=== PATIENT | male | born 1970 | race Two or more races ===

== ENCOUNTER 2018-08-27 18:38 | Inpatient (IN) | payer MEDICAID ==
[~2018-08-27] VITALS: Ht 180.3 cm; Wt 126.4 kg
[2018-08-27 19:47] LABS: Hematocrit 50.4 % (41.0-53.0); Hemoglobin 16.9 g/dL (13.5-17.5); Mean Corpuscular Hemoglobin 29.2 pg (28.0-32.0); Mean Corpuscular Hgb Conc. 33.5 g/dL (32.0-36.0); Mean Corpuscular Volume 87.1 fL (80.0-100.0); Platelet Count (auto) 301 10^3/uL (140-450); Red Blood Cells 5.79 10^6/uL (4.5-5.90); Red Cell Distribution Width 13.7 % (11.8-14.3); White Blood Cell 10.6 10^3/uL (4.4-10.8)
[2018-08-27 20:04] LABS: Albumin 3.7 g/dL (3.4-5.0); BUN/Creatinine Ratio 17.5; Calcium 8.1 mg/dL (8.5-10.1); Potassium 3.6 mmol/L (3.5-5.1)
[2018-08-27 20:05] LABS: Band Neutrophils % (manual) 0; Basophils % (manual) 0 (0.0-2.0); Blast Cells 0; Myelocytes % 0; Promyelocytes % 0; Reactive Lymphocytes 0
[2018-08-27 20:09] LABS: Bilirubin, Total 0.6 mg/dL (0.2-1.0); Total Protein 7.4 g/dL (6.4-8.2)
[2018-08-27 20:34] LABS: Eosinophils % (manual) 5 (0-7); Lymphocytes % (manual) 32 (10.0-50.0); Metamyelocytes % 1; Monocytes % (manual) 3 (0-12)
[2018-08-27] MEDS ORDERED: MORPHINE SULFATE 4 MG/ML SYR/VIAL IV ONE (21:00)
[2018-08-27] MEDS ORDERED: ASPirin-EC 81 mg tab PO ONE (21:00)
[2018-08-27] MEDS ORDERED: ONDANSETRON HCL 4 MG/2 ML VIAL IV ONE (21:00)
[2018-08-27] MEDS ORDERED: SODIUM CHLORIDE 0.9% 1,000 ML IV SCH (21:17)
[2018-08-27 21:20] LABS: INR 0.94 (0.9-1.15); Prothrombin Time 10.1 sec (9.27-12.13)
[2018-08-27] MEDS ORDERED: ENOXAPARIN SOD 100 MG/1 ML SYRINGE SC ONE ×2 (21:30→23:15)
[2018-08-27] MEDS ORDERED: ONDANSETRON HCL 4 MG/2 ML VIAL IV PRN (21:30)
[2018-08-27] MEDS ORDERED: TEMAZEPAM 15 MG CAP PO PRN (21:30)
[2018-08-27] MEDS ORDERED: HYDROcodone-ACET 5/325MG TAB PO PRN (21:30)
[2018-08-27] MEDS ORDERED: ACETAMINOPHEN 325 MG TAB PO PRN (21:30)
[2018-08-27] MEDS ORDERED: MORPHINE SULFATE 4 MG/ML SYR/VIAL IV PRN (21:30)
[2018-08-27] MEDS ORDERED: ATORVASTATIN 20 MG TAB PO SCH ×2 (22:00→23:45)
[2018-08-27 22:16] VITALS: BP 147/96
[2018-08-27] MEDS ORDERED: ENOXAPARIN SOD 120 MG/0.8 ML SYRINGE SC ONE (23:08)
[2018-08-27] MEDS: NITROGLYCERIN 0.4 MG SL TAB SL PRN (23:50)
[2018-08-28] VITALS (11 sets, daily range): BP systolic 124–161; BP diastolic 74–116
[2018-08-28] MEDS ORDERED: METOPROLOL TARTRATE 25 MG TAB PO ONE
[2018-08-28] MEDS: FAMOTIDINE 20 MG TAB PO SCH ×3 (00:12→21:38)
[2018-08-28 00:27] LABS: Urine WBC None Seen /hpf (0 - 3)
[2018-08-28 00:47] LABS: Urine Bacteria NONE SEEN /hpf (None Seen); Urine Blood Negative /uL (Negative); Urine Specific Gravity 1.016 (1.001-1.035)
[2018-08-28] MEDS: NITROGLYCERIN 0.4 MG SL TAB SL PRN ×2 (02:56→03:28)
[2018-08-28] MEDS ORDERED: NITROGLYCERIN 50MG/250ML 250 ML IV SCH (05:45)
[2018-08-28 06:08] LABS: Basophils # (auto) 0 uL; Basophils % (auto) 0.3 % (0.0-2.0); Eosinophils # (auto) 0.3 uL; Hematocrit 46.1 % (41.0-53.0); Hemoglobin 15.7 g/dL (13.5-17.5); Lymphocytes # (auto) 2.3 uL; Lymphocytes % (auto) 18.2 % (10.0-50.0); Mean Corpuscular Hemoglobin 28.9 pg (28.0-32.0); Mean Corpuscular Hgb Conc. 34.1 g/dL (32.0-36.0); Mean Corpuscular Volume 84.8 fL (80.0-100.0); Monocytes % (auto) 7.8 % (0.0-12.0); Neutrophils # (auto) 8.9 uL; Neutrophils % (auto) 71.7 % (37.0-80.0); Nucleated Red Blood Cells % 0.2 %; Platelet Count (auto) 273 10^3/uL (140-450); Red Blood Cells 5.44 10^6/uL (4.5-5.90); Red Cell Distribution Width 13.4 % (11.8-14.3); White Blood Cell 12.5 10^3/uL (4.4-10.8)
[2018-08-28 06:21] LABS: Albumin 3.5 g/dL (3.4-5.0); BUN/Creatinine Ratio 21.7; Calcium 7.6 mg/dL (8.5-10.1); Potassium 3.8 mmol/L (3.5-5.1)
[2018-08-28 06:24] LABS: Bilirubin, Total 0.6 mg/dL (0.2-1.0); Total Protein 6.9 g/dL (6.4-8.2)
[2018-08-28] MEDS ORDERED: IOHEXOL 350 MG/ML 100ML IJ ONE ×3 (08:17→08:51)
[2018-08-28] MEDS ORDERED: LIDOCAINE 2%HCL (LOCAL ANESTH.) INJ 20ML MDV ONE (08:17)
[2018-08-28] MEDS ORDERED: SODIUM CHL 0.9% 50 ML ONE (08:18)
[2018-08-28] MEDS ORDERED: ANGIOMAX 250 MG VIAL IV ONE (08:18)
[2018-08-28] MEDS ORDERED: MIDAZOLAM HCL 1MG/1ML-2 ML VIAL ONE (08:18)
[2018-08-28] MEDS ORDERED: fentaNYL CITRATE 100 MCG/2 ML VL ONE (08:18)
[2018-08-28] MEDS ORDERED: EPINEPHrine HCL 1 MG/10 ML SYRG ONE (08:24)
[2018-08-28] MEDS ORDERED: ATROPINE SULF 1 MG/10ml SYR ONE (08:24)
[2018-08-28] MEDS ORDERED: METOPROLOL TARTRATE 1MG/1ML-5ML VIAL IV ONE (08:58)
[2018-08-28] MEDS ORDERED: ASPirin 325 MG TAB ONE (09:00)
[2018-08-28] MEDS ORDERED: CLOPIDOGREL 300 MG TAB ONE (09:00)
[2018-08-28] MEDS ORDERED: ONDANSETRON HCL 4 MG/2 ML VIAL IV PRN (09:45)
[2018-08-28] MEDS ORDERED: ZOLPIDEM TARTRATE 5 MG TAB PO PRN (09:45)
[2018-08-28] MEDS ORDERED: ACETAMINOPHEN 500 MG TAB PO PRN (09:45)
[2018-08-28] MEDS ORDERED: HYDROcodone-ACET 5/325MG TAB PO PRN (09:45)
[2018-08-28] MEDS ORDERED: CLOPIDOGREL BISULFATE 75 MG TAB PO ONE (10:00)
[2018-08-28] MEDS ORDERED: ENOXAPARIN SOD 120 MG/0.8 ML SYRINGE SC SCH (10:00)
[2018-08-28] MEDS ORDERED: ASPirin 81 mg TAB PO SCH (10:00)
[2018-08-28] MEDS ORDERED: METOPROLOL TARTRATE 25 MG TAB PO SCH (10:00)
[2018-08-28] MEDS: LISINOPRIL 5 MG TAB PO SCH ×2 (10:00→21:38)
[2018-08-28] MEDS: METOPROLOL TARTRATE 50 MG TAB PO SCH (10:30)
[2018-08-28] MEDS ORDERED: ATORVASTATIN 20 MG TAB PO SCH (22:00)
[2018-08-29 04:47] VITALS: BP 102/63
[2018-08-29 06:57] LABS: Hematocrit 47.2 % (41.0-53.0); Hemoglobin 16.1 g/dL (13.5-17.5); Mean Corpuscular Hemoglobin 29.4 pg (28.0-32.0); Mean Corpuscular Hgb Conc. 34.2 g/dL (32.0-36.0); Platelet Count (auto) 266 10^3/uL (140-450); Red Blood Cells 5.49 10^6/uL (4.5-5.90); Red Cell Distribution Width 13.4 % (11.8-14.3); White Blood Cell 9.3 10^3/uL (4.4-10.8)
[2018-08-29 07:04] LABS: Potassium 4.1 mmol/L (3.5-5.1)
[2018-08-29 07:08] LABS: Band Neutrophils % (manual) 0; Basophils % (manual) 0 (0.0-2.0); Blast Cells 0; Eosinophils % (manual) 0 (0-7); Metamyelocytes % 0; Myelocytes % 0; Promyelocytes % 0; Reactive Lymphocytes 0
[2018-08-29 07:20] LABS: BUN/Creatinine Ratio 15.7; Calcium 8.3 mg/dL (8.5-10.1); Magnesium 2.4 mg/dL (1.6-2.6)
[2018-08-29 08:56] LABS: Lymphocytes % (manual) 23 (10.0-50.0); Monocytes % (manual) 10 (0-12)
[2018-08-29 09:00] VITALS: BP 107/70
[2018-08-29] MEDS: FAMOTIDINE 20 MG TAB PO SCH (09:27)
[2018-08-29] MEDS: METOPROLOL TARTRATE 50 MG TAB PO SCH (09:27)
[2018-08-29] MEDS: LISINOPRIL 5 MG TAB PO SCH (09:27)
[2018-08-29] MEDS ORDERED: CLOPIDOGREL BISULFATE 75 MG TAB PO SCH (10:00)
[2018-08-29] MEDS ORDERED: ASPirin-EC 81 mg tab PO SCH (10:00)
[2018-08-29 13:00] VITALS: BP 112/68
[2018-08-29] MEDS ORDERED: ASP81EC PO (13:44)
[2018-08-29] MEDS ORDERED: LISI-275 PO (13:44)
[2018-08-29] MEDS ORDERED: CLOP75TA28 PO (13:44)
[2018-08-29] MEDS ORDERED: MET25T PO (13:44)
[2018-08-29] MEDS ORDERED: PANT40TA2 PO (13:44)
[2018-08-29] MEDS ORDERED: METF-370 PO (13:44)
[2018-08-29 16:24] VITALS: BP 123/76
== END 2018-08-29 16:55 | disposition home or self-care (01) | DRG 174 ==
LOC: ER 18:45 → TELE 21:20 → TELE-WESTW 22:19 → ICU CENTRL 08-28 05:37 → TELE 08-28 05:53 → TELE-WESTW 08-28 10:27
PROVIDERS: ADMIT Nurse Practitioner; ATTEND Internal Medicine
PROC: 027035Z Dilation of Coronary Artery, One Artery with Two Drug-eluting Intraluminal Devices, Percutaneous Approach (ICD-10-PCS; principal; 2018-08-27)
PROC: 4A023N7 Measurement of Cardiac Sampling and Pressure, Left Heart, Percutaneous Approach (ICD-10-PCS; 2018-08-27)
PROC: B2111ZZ Fluoroscopy of Multiple Coronary Arteries using Low Osmolar Contrast (ICD-10-PCS; 2018-08-28)
PROC: B2151ZZ Fluoroscopy of Left Heart using Low Osmolar Contrast (ICD-10-PCS; 2018-08-28)
DX: I21.4 Non-ST elevation (NSTEMI) myocardial infarction (principal); E66.01 Morbid (severe) obesity due to excess calories; I10 Essential (primary) hypertension; E78.5 Hyperlipidemia, unspecified; Z68.38 Body mass index [BMI] 38.0-38.9, adult; E11.9 Type 2 diabetes mellitus without complications; I25.10 Atherosclerotic heart disease of native coronary artery without angina pectoris; Z82.49 Family history of ischemic heart disease and other diseases of the circulatory system; Z95.5 Presence of coronary angioplasty implant and graft; Z87.81 Personal history of (healed) traumatic fracture
CPT/HCPCS: 36415; 71045; 80048; 80053; 80061; 81001; 83036; 83735; 84443; 84484; 85007; 85025; 85027; 85610; 85730; 87081; 92928; 93005; 93306; 93458; 96361; 96374; 96375; A6257; G0378; J2250; J2405

== ENCOUNTER → 2019-06-24 | Outpatient (CLI) | payer MEDICAID ==
[~2019-06-24] VITALS: Ht 180.3 cm; Wt 129.3 kg
[~2019-06-24] MED LIST: ASP81EC PO; CLOP75TA28 PO; LISI-275 PO; MET25T PO; METF-370 PO; PANT40TA2 PO
== END | disposition home or self-care (01) ==
LOC: Rad HDHVI 08:47
PROVIDERS: ATTEND Internal Medicine
DX: I10 Essential (primary) hypertension (principal); I25.10 Atherosclerotic heart disease of native coronary artery without angina pectoris; E78.5 Hyperlipidemia, unspecified; R63.8 Other symptoms and signs concerning food and fluid intake
CPT/HCPCS: 78452; 93017; 93306; 96374; A9500

== ENCOUNTER 2023-02-20 17:49 | Inpatient (IN) | payer MEDICAID ==
[~2023-02-20] VITALS: Ht 180.3 cm; Wt 130.6 kg
[~2023-02-20 17:49] MED LIST changes: -ASP81EC PO; +ASPI-394 PO
[2023-02-20 18:36] LABS: Hematocrit 50.3 % (41.0-53.0); Mean Corpuscular Hgb Conc. 33.7 g/dL (32.0-36.0); Red Blood Cells 5.85 10^6/uL (4.5-5.90); Red Cell Distribution Width 13.6 % (11.8-14.3); White Blood Cell 7.2 10^3/uL (4.4-10.8)
[2023-02-20 18:38] LABS: Calcium 9.5 mg/dL (8.5-10.1); Potassium 5.2 mmol/L (3.5-5.1)
[2023-02-20 18:42] LABS: BUN/Creatinine Ratio 12.7 (10.0-20.0); Band Neutrophils % (manual) 0; Basophils % (manual) 0 (0.0-2.0); Bilirubin, Total 0.6 mg/dL (0.2-1.0); Blast Cells 0; Metamyelocytes % 0; Myelocytes % 0; Promyelocytes % 0; Reactive Lymphocytes 0; Total Protein 7.5 g/dL (6.4-8.2)
[2023-02-20] MEDS ORDERED: NITROGLYCERIN 0.4 MG SL TAB SL ONE (18:45)
[2023-02-20] MEDS ORDERED: ASPirin 81 mg TAB PO ONE (18:45)
[2023-02-20] MEDS ORDERED: MAALOX PLUS or MAALOX 30 ML PO ONE (18:45)
[2023-02-20 19:07] LABS: Eosinophils % (manual) 2 (0-7); Lymphocytes % (manual) 34 (10.0-50.0); Monocytes % (manual) 5 (0-12)
[2023-02-20 19:27] LABS: INR 0.98 (0.9-1.15); Partial Thromboplastin Time 28.5 sec (24.6-33.4)
[2023-02-20 19:31] LABS: Lactic Acid w/Reflex 5.3 mmol/L (0.4-2.0)
[2023-02-20 20:13] LABS: Urine WBC None Seen /hpf (0 - 3)
[2023-02-20 20:33] LABS: Urine Bacteria NONE SEEN /hpf (None Seen); Urine Blood Negative /uL (Negative); Urine Specific Gravity 1.023 (1.001-1.035)
[2023-02-20 20:51] LABS: Alcohol, Urine < 3.0 mg/dL (0-10); Amphetamine Screen, Urine NEGATIVE (NEGATIVE); Barbiturate Scree,Urine NEGATIVE (NEGATIVE); Benzodiazephine Screen, Urine NEGATIVE (NEGATIVE); Cannabinoid Screen, Urine NEGATIVE (NEGATIVE); Cocaine Screen, Urine NEGATIVE (NEGATIVE); Opiate Scree,Urine NEGATIVE (NEGATIVE); Phencyclidine Screen, Urine NEGATIVE (NEGATIVE)
[2023-02-20] MEDS ORDERED: DEXTROSE (50%) 50ML SYRG IV PRN (21:45)
[2023-02-20] MEDS ORDERED: ACETAMINOPHEN 325 MG TAB PO PRN (21:45)
[2023-02-20] MEDS ORDERED: hydrALAZINE HCL 20 MG/ML VL IV PRN (21:45)
[2023-02-20] MEDS ORDERED: DOCUSATE SOD 100 MG CAP PO PRN (21:45)
[2023-02-20] MEDS ORDERED: HYDROcodone-ACET 5/325MG TAB PO PRN (21:45)
[2023-02-20] MEDS ORDERED: ONDANSETRON HCL 4 MG/2 ML VIAL IV PRN (21:45)
[2023-02-20] MEDS ORDERED: ATORVASTATIN 20 MG TAB PO SCH (22:00)
[2023-02-20] MEDS: METOPROLOL TARTRATE 50 MG TAB PO SCH (22:23)
[2023-02-20] MEDS ORDERED: NITROGLYCERIN 0.4 MG SL TAB SL PRN (22:30)
[2023-02-20] MEDS ORDERED: MORPHINE SULFATE INJ 2 MG/ml SYRG IV PRN (22:30)
[2023-02-20] MEDS: FAMOTIDINE (10MG/ML) 2ML VL IV SCH (22:37)
[2023-02-20] MEDS: SODIUM CHLORIDE 0.9% 500 ML IV ONE (22:41)
[2023-02-20] MEDS: SODIUM CHLORIDE 0.9% 1,000 ML IV SCH (22:41)
[2023-02-20] MEDS ORDERED: IOHEXOL 350 MG/ML 100ML IJ ONE (22:54)
[2023-02-21] VITALS (7 sets, daily range): BP systolic 129–152; BP diastolic 81–94
[2023-02-21] MEDS: SODIUM CHLORIDE 0.9% 500 ML IV ONE (00:04)
[2023-02-21] MEDS: SODIUM CHLORIDE 0.9% 1,000 ML IV SCH ×2 (00:04→14:25)
[2023-02-21] MEDS: InsuLIN REG 1unit/0.01ml Soln (100units/ml) SC SCH ×5 (00:15→16:37)
[2023-02-21] MEDS: ACCU-CHEK COMFORT CURVE STRIP VI SCH ×5 (00:15→16:37)
[2023-02-21] MEDS ORDERED: SENNA 8.6 MG TAB PO ONE (01:45)
[2023-02-21] MEDS ORDERED: ATOR40TA52 PO (05:14)
[2023-02-21 06:33] LABS: Hematocrit 44.4 % (41.0-53.0); Hemoglobin 15.4 g/dL (13.5-17.5); Mean Corpuscular Hemoglobin 29.8 pg (28.0-32.0); Mean Corpuscular Hgb Conc. 34.8 g/dL (32.0-36.0); Mean Corpuscular Volume 85.6 fL (80.0-100.0); Red Blood Cells 5.18 10^6/uL (4.5-5.90); Red Cell Distribution Width 13.6 % (11.8-14.3)
[2023-02-21 06:45] LABS: Albumin 3.3 g/dL (3.4-5.0); Calcium 7.9 mg/dL (8.5-10.1); Potassium 3.7 mmol/L (3.5-5.1)
[2023-02-21 06:48] LABS: BUN/Creatinine Ratio 15.9 (10.0-20.0); Bilirubin, Total 0.5 mg/dL (0.2-1.0); Total Protein 6.4 g/dL (6.4-8.2)
[2023-02-21 07:05] LABS: Basophils % (manual) 0 (0.0-2.0); Blast Cells 0; Myelocytes % 0; Promyelocytes % 0; Reactive Lymphocytes 0
[2023-02-21] MEDS: FAMOTIDINE (10MG/ML) 2ML VL IV SCH (08:17)
[2023-02-21] MEDS: METOPROLOL TARTRATE 50 MG TAB PO SCH (08:20)
[2023-02-21] MEDS ORDERED: CLOPIDOGREL BISULFATE 75 MG TAB PO SCH (10:00)
[2023-02-21] MEDS ORDERED: ASPirin 81 mg TAB PO SCH (10:00)
[2023-02-21 10:52] LABS: Band Neutrophils % (manual) 1; Eosinophils % (manual) 4 (0-7); Lymphocytes % (manual) 35 (10.0-50.0); Metamyelocytes % 1; Monocytes % (manual) 16 (0-12)
[2023-02-21] MEDS ORDERED: PANT40TA2 PO (17:19)
[2023-02-21] MEDS ORDERED: SUCR1TAB PO (17:19)
[2023-02-21] MEDS ORDERED: SENNA 8.6 MG TAB PO SCH (22:00)
== END 2023-02-21 18:42 | disposition home or self-care (01) | DRG 241 ==
LOC: ER 17:49 → TELE 22:32 → TELE-EAST 02-21 04:02
PROVIDERS: ADMIT Nurse Practitioner Family; ATTEND Hospitalist
DX: K29.00 Acute gastritis without bleeding (principal); K76.0 Fatty (change of) liver, not elsewhere classified; E11.65 Type 2 diabetes mellitus with hyperglycemia; E87.5 Hyperkalemia; K59.00 Constipation, unspecified; K21.9 Gastro-esophageal reflux disease without esophagitis; E78.5 Hyperlipidemia, unspecified; E78.00 Pure hypercholesterolemia, unspecified; I25.2 Old myocardial infarction; Z95.5 Presence of coronary angioplasty implant and graft; Z79.4 Long term (current) use of insulin
CPT/HCPCS: 36415; 71045; 71260; 74177; 80053; 80307; 81001; 82962; 83036; 83605; 83735; 83880; 84484; 85007; 85027; 85379; 85610; 85730; 87040; 93005; 96360; G0378; J1815; J3490

== ENCOUNTER 2025-09-03 19:55 | Emergency (ER) | payer MEDICAID ==
[~2025-09-03] VITALS: Ht 180.3 cm; Wt 113.6 kg
[~2025-09-03 19:55] MED LIST changes: +ATOR40TA52 PO; -CLOP75TA28 PO; +SUCR1TAB PO
--- NOTE | 2025-09-03 21:40 | DVH ---
COMPUTERIZED TOMOGRAPHY OF THE HEAD WITHOUT CONTRAST REASON FOR STUDY: LEFT SIDED WEAKNESS COMPARISON: None TECHNIQUE: Helical tomographic scans were obtained through the brain. 2-D coronal and sagittal reformatted images are provided. Radiation optimization: All CT scans at this facility use at least one of these dose optimization techniques: Automated exposure control mA and/or kV adjustment per patient size (includes targeted exams where dose is matched to clinical indication) or iterative reconstruction. RADIATION DOSE: CTDI: 67.33 mGy DLP: 1326.6 mGy-cm FINDINGS: No suspicious intracranial hyperdensity to suggest acute blood. There is no old lacunar infarct in the left basal ganglia. There is no mass effect nor midline shift. There is no hydrocephalus. The suprasellar cistern is intact. The calvarium is intact. The visualized mastoid air cells and paranasal sinuses are clear. IMPRESSION: No acute intracranial abnormality. Old lacunar infarct in the left basal ganglia.
--- NOTE | 2025-09-03 22:08 | ED.PDOC ---
HPI (NEURO) HPI Comments 55-year-old male who came to ER for left-sided weakness. Patient states he woke up this afternoon with weakness and numbness over his left arm. Denies any weakness for numbness in his left leg. Denies any headaches or dizziness or chest pains. Denies any neck pain Chief Complaint: Left Sided Weakness Time Seen by MD: 22:08 Primary Care Provider: Yeison Baig Notes: Nurses Notes Information Source: Patient Mode of Arrival: Ambulatory Past Medical History PAST MEDICAL HISTORY: DM, High Lipids, [place] Surgical History: PTCA Family History Family History: No family hx of HTN Social History Smoker: Non-Smoker Alcohol: Denies ETOH Use Drugs: Denies Drug Use Lives In: Home Constitutional: denies: chills, diaphoresis, fatigue, fever, malaise, sweats, weakness, others EENTM: denies: blurred vision, double vision, ear bleeding, ear discharge, ear drainage, ear pain, ear ringing, eye pain, eye redness, hearing loss, mouth pain, mouth swelling, nasal discharge, nose bleeding, nose congestion, nose pain, photophobia, tearing, throat pain, throat swelling, voice changes, others Respiratory: denies: cough, hemoptysis, orthopnea, SOB at rest, shortness of breath, SOB with excertion, stridor, wheezing, others Cardiovascular: denies: chest pain, dizzy spells, diaphoresis, Dyspnea on exertion, edema, irregular heart beat, left arm pain, lightheadedness, palpitations, PND, syncope, others Gastrointestinal: denies: abdomen distended, abdominal pain, blood streaked bowels, constipated, diarrhea, dysphagia, difficulty swallowing, hematemesis, melena, nausea, poor appetite, poor fluid intake, rectal bleeding, rectal pain, vomiting, others Genitourinary: denies: burning, dysuria, flank pain, frequency, hematuria, incontinence, penile discharge, penile sore, pain, testicle pain, testicle swelling, urgency, others Neurological: reports: left sided numbness, left sided weakness; denies: dizziness, fainting, headache, numbness, paresthesia, pre-existing deficit, right sided numbness, right sided weakness, seizure, speech problems, tingling, tremors, weakness, others Musculoskeletal: denies: back pain, gout, joint pain, joint swelling, muscle pain, muscle stiffness, neck pain, others Integumetry: denies: bruises, change in color, change in hair/nails, dryness, laceration, lesions, lumps, rash, wounds, others Allergic/Immunocompromised: denies: Difficulty Healing, Frequent Infections, Hives, Itching, others Hematologic/Lymphatic: denies: anemia, blood clots, easy bleeding, easy bruising, swollen glands, others Endocrine: denies: excessive hunger, excessive sweating, excessive thirst, excessive urination, flushing, intolerance to cold, intolerance to heat, unexplained weight gain, unexplained weight loss, others Psychiatric: denies: anxiety, bipolar disorder, depression, hopeless, panic disorder, schizophrenia, sleepless, suicidal, others Physical Exam General Appearance: No Apparent Distress, Normal HEENT: Normal ENT Inspection, Pharynx Normal, TMs Normal Neck: Full Range of Motion, Non-Tender, Normal, Normal Inspection Respiratory: Chest Non-Tender, Lungs Clear, No Accessory Muscle Use, No Respiratory Distress, Normal Breath Sounds Cardiovascular: No Edema, No JVD, No Murmur, No Gallop, Normal Peripheral Pulses, Regular Rate/Rhythm Breast Exam: Deferred Gastrointestinal: No Organomegaly, Non Tender, No Pulsatile Mass, Normal Bowel Sounds, Soft Genitalia: Deferred Pelvic: Deferred Rectal: Deferred Extremities: No calf tenderness, Normal capillary refill, Normal inspection, Normal range of motion, Non-tender, No pedal edema Musculoskeletal : Apperance: Normal Neurologic: Alert, guest services director II-XII nml as Tested, No Motor Deficits, Normal Affect, Normal Mood, No Sensory Deficits Cerebellar Function: Normal Reflexes: Normal Skin: Dry, Normal Color, Warm Lymphatic: No Adenopathy Was a procedure done? Was a procedure done?: No Differential Diagnosis (SZ) CVA: CVA, Electrolyte Imbalance, Hypoglycemia, TIA X-Ray, Labs, Meds, VS Vital Signs Date Time Temp Pulse Resp B/P (MAP) Pulse Ox O2 Delivery O2 Flow Rate FiO2 09/04/25 00:45 97.6 86 16 142/81 (101) 96 97.6 09/03/25 20:08 92 09/03/25 19:57 97.5 86 16 153/101 97 97.5 Lab Test 09/03/25 23:26 09/03/25 22:36 Range/Units Troponin I High Sensitivity 3 L < 3 L </=54 ng/L White Blood Count 7.2 4.4-10.8 10^3/uL Red Blood Count 5.98 H 4.5-5.90 10^6/uL Hemoglobin 17.1 13.5-17.5 g/dL Hematocrit 50.8 41.0-53.0 % Mean Corpuscular Volume 85.0 80.0-100.0 fL Mean Corpuscular Hemoglobin 28.5 28.0-32.0 pg Mean Corpuscular Hemoglobin Concent 33.6 32.0-36.0 g/dL Red Cell Distribution Width 14.2 11.8-14.3 % Platelet Count 241 140-450 10^3/uL Mean Platelet Volume 7.8 6.9-10.8 fL Neutrophils (%) (Auto) 51.1 37.0-80.0 % Lymphocytes (%) (Auto) 35.9 10.0-50.0 % Monocytes (%) (Auto) 7.9 0.0-12.0 % Eosinophils (%) (Auto) 4.5 0.0-7.0 % Basophils (%) (Auto) 0.6 0.0-2.0 % Neutrophils # (Auto) 3.7 1.6-8.6 10 ^3/uL Lymphocytes # (Auto) 2.6 0.4-5.4 10 ^3/uL Monocytes # (Auto) 0.6 0-1.3 10 ^3/uL Eosinophils # (Auto) 0.3 0-0.8 10 ^3/uL Basophils # (Auto) 0 0-0.2 10 ^3/uL Nucleated Red Blood Cells 0.1 % Prothrombin Time 10.7 9.3-11.8 sec Prothrombin Time INR 1.01 0.9-1.15 Activated Partial Thromboplast Time 28.2 24.5-34.5 SEC Sodium Level 140 136-145 mmol/L Potassium Level 3.9 3.5-5.1 mmol/L Chloride Level 106 98-107 mmol/L Carbon Dioxide Level 23 20-31 mmol/L Anion Gap 11 5-15 Blood Urea Nitrogen 14 9-23 mg/dL Creatinine 1.02 0.700-1.30 mg/dL Glomerular Filtration Rate Calc 88 >90 mL/min BUN/Creatinine Ratio 13.7 10.0-20.0 Serum Glucose 159 H 74-106 mg/dL Calcium Level 9.3 8.7-10.4 mg/dL Magnesium Level 1.9 1.6-2.6 mg/dL Total Bilirubin 0.6 0.2-1.0 mg/dL Aspartate Amino Transferase (AST) 19 13-40 U/L Alanine Aminotransferase (ALT) 23 7-40 U/L Alkaline Phosphatase 39 L 46-116 U/L Total Protein 6.8 5.7-8.2 g/dL Albumin 4.2 3.2-4.8 g/dL COMPUTERIZED TOMOGRAPHY OF THE HEAD WITHOUT CONTRAST REASON FOR STUDY: LEFT SIDED WEAKNESS COMPARISON: None TECHNIQUE: Helical tomographic scans were obtained through the brain. 2-D coronal and sagittal reformatted images are provided. Radiation optimization: All CT scans at this facility use at least one of these dose optimization techniques: Automated exposure control mA and/or kV adjustment per patient size (includes targeted exams where dose is matched to clinical indication) or iterative reconstruction. RADIATION DOSE: CTDI: 67.33 mGy DLP: 1326.6 mGy-cm FINDINGS: No suspicious intracranial hyperdensity to suggest acute blood. There is no old lacunar infarct in the left basal ganglia. There is no mass effect nor midline shift. There is no hydrocephalus. The suprasellar cistern is intact. The calvarium is intact. The visualized mastoid air cells and paranasal sinuses are clear. IMPRESSION: No acute intracranial abnormality. Old lacunar infarct in the left basal ganglia. Time of 1ST Reevaluation: 22:05 Reevaluation 1ST: Unchanged Patient Education/Counseling: Diagnosis, Treatment Family Education/Counseling: Diagnosis, Treatment Departure 1 Departure Time of Disposition: 00:52 Impression: Primary Impression: Chest pain Additional Impressions: Left arm weakness Acute coronary syndrome Disposition: ADMITTED INPATIENT Admit to: Tele Condition: Guarded Comments 55-year-old male who woke up after a nap with left arm weakness and left-sided chest pain. His arm is still weak but improving. Last known well about 8 hours prior to arrival. The fact that he is improving excludes him from any tPA. His CT of the head did show signs of old stroke. Patient was given an aspirin. Patient will need to be admitted for supportive care and further workup. Critical Care Note Critical Care Time?: Yes (35 min-critical care time only) Critical care comment: Total critical care time: Approximately 36 minutes Due to a high probability of clinically significant, life threatening deterioration, the patient required my highest level of preparedness to intervene emergently and I personally spent this critical care time directly and personally managing the patient. This critical care time included obtaining a history; examining the patient; pulse oximetry; ordering and review of studies; arranging urgent treatment with development of a management plan; evaluation of patient's response to treatment; frequent reassessment; and, discussions with other providers. This critical care time was performed to assess and manage the high probability of imminent, life-threatening deterioration that could result in multi-organ failure. It was exclusive of separately billable procedures and treating other patients. Stability Stability form required: No Heart Score Heart Score: Heart Score Response (Comments) Value History N/A 0 EKG N/A 0 Age N/A 0 Risk Factors N/A 0 Troponin N/A 0 Total 0 I personally scribed for SIMONE GANT MD ([email or web address]) on 09/03/25 at 22:08. Electronically submitted by Steven Odell ([email or web address]). I personally scribed for SIMONE GANT MD ([email or web address]) on 09/03/25 at 22:09. Electronically submitted by Steven Odell ([email or web address]). SIMONE GANT MD Sep 03, 2025 22:08
[2025-09-03 22:49] LABS: Hematocrit 50.8 % (41.0-53.0); Hemoglobin 17.1 g/dL (13.5-17.5); Mean Corpuscular Hemoglobin 28.5 pg (28.0-32.0); Mean Corpuscular Volume 85.0 fL (80.0-100.0); Nucleated Red Blood Cells % 0.1 %
[2025-09-03 23:05] LABS: INR 1.01 (0.9-1.15); Partial Thromboplastin Time 28.2 SEC (24.5-34.5); Prothrombin Time 10.7 sec (9.3-11.8)
[2025-09-03 23:11] LABS: Alanine Aminotransferase 23 U/L (7-40); Anion Gap 11 (5-15); BUN/Creatinine Ratio 13.7 (10.0-20.0); Blood Urea Nitrogen 14 mg/dL (9-23); Calcium 9.3 mg/dL (8.7-10.4); Carbon Dioxide 23 mmol/L (20-31); Chloride 106 mmol/L (98-107); Magnesium 1.9 mg/dL (1.6-2.6); Potassium 3.9 mmol/L (3.5-5.1); Sodium 140 mmol/L (136-145); Total Protein 6.8 g/dL (5.7-8.2)
[2025-09-03 23:12] LABS: Albumin 4.2 g/dL (3.2-4.8)
[2025-09-03 23:13] LABS: Bilirubin, Total 0.6 mg/dL (0.2-1.0)
[2025-09-03 23:16] LABS: Alkaline Phosphatase 39 U/L (46-116); Glucose 159 mg/dL (74-106)
[2025-09-04 00:45] VITALS: BP 142/81; PULSE 86; RESP 16; TEMP 97.6; O2SAT 96
--- NOTE | 2025-09-07 09:53 | ECG ---
[facility] Test Date: 2025-09-03 Test Time: 20:02:47 Pat Name: YANET MONGE Department: Room: Gender: M [employer] Reader: : 1970 Requested By: SIMONE GANT Order Number: [id number] Reading MD: Quincy Burks Measurements Intervals [place] Rate: 92 P: 58 CA: 186 QRS: 71 QRSD: 102 T: 17 QT: 364 QTc: 451 Interpretive Statements Sinus rhythm Inferior infarct, old Electronically Signed On 09-08-2025 17:25:12 PST by Quincy Burks Please click the below link to view image of tracing.
== END 2025-09-04 00:46 | disposition left against medical advice (07) ==
LOC: ER 19:55
DX: I24.9 Acute ischemic heart disease, unspecified (principal); R53.1 Weakness; R20.0 Anesthesia of skin; E11.9 Type 2 diabetes mellitus without complications; I25.2 Old myocardial infarction; Z86.73 Personal history of transient ischemic attack (TIA), and cerebral infarction without residual deficits
CPT/HCPCS: 36415; 70450; 80053; 83735; 84484; 85025; 85610; 85730; 93005